=== PATIENT | male | born 1985 | race Caucasian/White ===

== ENCOUNTER 2021-03-30 07:34 | Emergency (ER) | payer MEDICAID ==
[~2021-03-30] VITALS: Ht 200.7 cm; Wt 153.4 kg
--- NOTE | 2021-03-30 09:38 | NUR ---
EBENEZER RN: ASSUMED CARE FOR DISCHARGE ONLY. PT REQUESTED MD NOTE FOR A WEEK, SPOKE WITH ZULEMA RIBERA FOR 2 DAYS. EXPLAINED AND GAVE NOTE TO PATIENT. Patient given discharge instructions and they have confirmed that they understand the instructions. Patient ambulatory with steady gait. NAD, all questions answered appropriately, denies additional needs at this time. No personal belongings left in room after discharge.
[2021-03-30 09:39] VITALS: BP 154/78
== END 2021-03-30 09:41 | disposition home or self-care (01) ==
LOC: ED 08:43
DX: S20.212A Contusion of left front wall of thorax, initial encounter (principal); F17.200 Nicotine dependence, unspecified, uncomplicated; W22.8XXA Striking against or struck by other objects, initial encounter; Y93.89 Activity, other specified; Y92.410 Unspecified street and highway as the place of occurrence of the external cause; Y99.8 Other external cause status
CPT/HCPCS: 93005; 99283